=== PATIENT | female | born 1980 | race Caucasian/White ===

== ENCOUNTER 2021-09-19 14:46 | Emergency (ER) | payer MEDICAID ==
[~2021-09-19] VITALS: Ht 152.4 cm; Wt 117.9 kg
[~2021-09-19 14:46] MED LIST: ABILIFY 5 MG TAB5 M1 PO; CLEOCIN HCL300 MG PO; DESYREL50 MG PO; FERROUS SULFAT325 M1 PO; FLEXERIL PO; IBUPROFEN 800800 MG PO; LEVOTHYROXINE0.05 MG PO; MOBIC15 MG PO; NAPROSYN500 MG PO; PAROXETINE HCL10 MG PO; PENICILLIN VK250 MG PO; ROBAXIN500 MG PO; TRAMADOL 50 MG50 MG PO; ULTRAM 50MG TAB50 MG PO; ZANTAC 150MG T150 M1 PO
[2021-09-19 14:56] VITALS: BP 137/75
[2021-09-19] MEDS ORDERED: PROTONIX40 M3 PO (15:01)
[2021-09-19] MEDS ORDERED: ZOLOFT100 MG PO (15:02)
[2021-09-19] MEDS ORDERED: MIRAPEX0.125 MG PO (15:02)
[2021-09-19] MEDS ORDERED: CELEBREX50 MG PO (15:02)
[2021-09-19] MEDS ORDERED: COZAAR 25 MG TA25 MG PO (15:03)
== END 2021-09-19 15:04 | disposition left against medical advice (07) ==
LOC: M.ERS 14:46
DX: M54.2 Cervicalgia (principal); F12.90 Cannabis use, unspecified, uncomplicated; F31.9 Bipolar disorder, unspecified; F41.9 Anxiety disorder, unspecified; K21.9 Gastro-esophageal reflux disease without esophagitis; Z53.21 Procedure and treatment not carried out due to patient leaving prior to being seen by health care provider; Z98.890 Other specified postprocedural states; Z90.49 Acquired absence of other specified parts of digestive tract; Z98.51 Tubal ligation status

== ENCOUNTER 2021-10-02 04:19 | Emergency (ER) | payer MEDICAID ==
[~2021-10-02 04:19] MED LIST changes: +CELEBREX50 MG PO; +COZAAR 25 MG TA25 MG PO; +MIRAPEX0.125 MG PO; +PROTONIX40 M3 PO; +ZOLOFT100 MG PO
== END 2021-10-02 05:04 | disposition left against medical advice (07) ==
LOC: M.ERS 04:19
DX: R06.02 Shortness of breath (principal); Z53.21 Procedure and treatment not carried out due to patient leaving prior to being seen by health care provider